=== PATIENT | female | born 1990 | race Caucasian/White ===

== ENCOUNTER 2021-03-06 17:51 | Emergency (ER) | payer BC, SELFPAY ==
[2021-03-06 18:02] VITALS: BP 132/89; PULSE 81; RESP 16; TEMP 36.3; O2SAT 100
--- NOTE | 2021-03-06 18:05 | ED.EAR ---
HPI - Ear Problem General Chief complaint: Ear Stated complaint: ear pain Time Seen by Provider: 03/06/21 18:05 Source: patient Mode of arrival: ambulatory Limitations: no limitations History of Present Illness HPI Narrative: Mary Kate Aguayo is a 30 yo female with a PMH of depression that comes to [facility] for complaints of congestion and left ear pain. No sore throat. For couple days, jaw pain and pressure across her nose that she says is pretty painful but rates it a 5 out of 10; and sleep due to the pressure-has not taken anything however except Tylenol Related Data Home Medications Medication Instructions Recorded Confirmed levonorgestrel 20 mcg/24 hours (6 1 device INTRAUTERINE ONCE 10/12/20 03/06/21 yrs) 52 mg intrauterine device sertraline 25 mg tablet 25 mg PO DAILY 10/12/20 03/06/21 Allergies Allergy/AdvReac Type Severity Reaction Status Date / Time rofecoxib Allergy Intermediate Unknown Verified 07/01/19 19:12 naproxen Allergy Mild Rash Verified 10/12/20 15:19 Review of Systems Review of Systems: Narrative: CONSTITUTIONAL: Denies fever, chills, sweats. EYES: Denies visual changes, redness, discharge. ENT: Has rhinorrhea, has congestion, sore throat, left otalgia. CARDIOVASCULAR: Denies chest pain, palpitations, edema. RESPIRATORY: Denies dyspnea, wheezing, cough GASTROINTESTINAL: Denies abdominal pain, nausea, vomiting, diarrhea. GENITOURINARY: Denies dysuria, hematuria, abnormal discharge SKIN: Denies rash or itching. NEUROLOGIC: Denies numbness, or focal weakness. PSYCHIATRIC: Denies anxiety or depression. [facility] Past Medical History Medical History Anxiety Depression Family History Family History Father Heart disease Social History Social History Smoking status: Never smoker Alcohol intake: never Substance use: never Gender identity (if verbalized by the patient): Female Comments At time of signature, I agree with nursing past medical, surgical, social and family history. There is no relevant family history pertinent to the presenting complaint. Exam Narrative: Exam Narrative: GENERAL: This is a well-nourished, well-developed patient, in mild distress. HEAD: normocephalic, atraumatic. EYES: Sclera clear/white. Vision is grossly intact. EARS: External ears normal, auditory canals clear on right with some fluid behind TM and with erythema and fluid behind TM on left, has mild tenderness along eustachian tube of left side. Hearing grossly intact. NOSE: External nose normal with nasal discharge, nares without redness, has rhinorrhea. THROAT: Mucous membranes moist, posterior pharynx erythema with clear postnasal drainage NECK: Neck supple, non-tender CARDIOVASCULAR: Regular rate and rhythm without murmurs, gallops, or rubs. RESPIRATORY: Clear to auscultation. Breath sounds equal bilaterally. No wheezes, rales, or rhonchi. GASTROINTESTINAL: Abdomen soft, SKIN: warm, intact with no suspicious lesions or rash, good texture and turgor. NEURO: awake, alert, and oriented to person, place and time. There were no obvious focal neurologic abnormalities. Steady gait EXTREMITIES: Normal range of motion. BACK: Nontender without deformity Course Course Emergency Course: Patient comes to [facility] with complaints of cold symptoms that started a week ago but her left ear started hurting yesterday and she was unable to sleep she feels a lot of pressure and the frontal sinuses and the left side of her jaw and her ear aches Started on polymyxin eardrops Prednisone 40 mg a day x5 days Recommended that she restart her Zyrtec; may use Flonase as needed after she has completed the prednisone Vital Signs Vital signs: Vital Signs Temperature 97.3 F L 03/06/21 18:02 Pulse Rate 81 03/06/21 18:02 Respiratory Rate 16 03/06/21
== END 2021-03-06 18:26 | disposition home or self-care (01) ==
PROVIDERS: Emergency Provider Nurse Practitioner; PCP Family Medicine
DX: H65.02 Acute serous otitis media, left ear (principal); R09.81 Nasal congestion; F41.9 Anxiety disorder, unspecified; F32.9 Major depressive disorder, single episode, unspecified
CPT/HCPCS: 99213; G0463

== ENCOUNTER → 2021-09-10 12:30 | Outpatient (CLI) | payer BC, SELFPAY ==
--- NOTE | ~2021-09-10 | CT_ITS ---
EXAMINATION: CT abdomen pelvis wo con DATE: 09/10/2021 13:06 INDICATION: Noninfected gastroenteritis and colitis. TECHNIQUE: Computed tomography (CT) of the abdomen and pelvis was performed without intravenous contr ast. Automated exposure control and iterative reconstruction technique were employed. The dose-length product was 318.12 mGy-cm. COMPARISON: None. FINDINGS: The visualized portions of the lung bases are clear without pneumonia or pleural effusion. The heart size is normal. No pericardial effusion. The liver, gallbladder, spleen, pancreas, adrenal glands, and kidneys are normal. There is no urolithiasis. There is an intrauterine device in expected position. There is a 2.7 cm calcified uterine fibroid. There are no dilated loops of bowel. The appe ndix is normal. There are no pathologically enlarged lymph nodes. There is no free intraperitoneal fl uid. There is mild lumbar spondylosis. IMPRESSION: 1. Uterine fibroid. Reviewed, dictated and finalized at location A. 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 Uterine fibroid.
== END ==
PROVIDERS: PCP Family Medicine; Visit Provider Family Medicine
DX: K52.9 Noninfective gastroenteritis and colitis, unspecified (principal); R10.9 Unspecified abdominal pain; D25.9 Leiomyoma of uterus, unspecified
CPT/HCPCS: 74176

== ENCOUNTER 2021-11-25 00:49 | Day surgery (SDC) | payer BC, SELFPAY ==
[2021-11-11 12:41] VITALS: BMI 22.3
--- NOTE | 2021-11-24 14:28 | P.HP_ITS ---
History of Present Illness History of Present Illness Consent: Risks, benefits, and alternatives have been discussed and questions answered. Patient agrees to proceed with procedure. Chief complaint: diarrhea Narrative: Koki Aguayo is a 31 year old female here for investigation of diarrhea which began about 4 months ago . She will have very loose stools that are watery or mucoid. After 2 weeks or so, symptoms will improve temporarily. She also has abdominal cramping when having diarrhea. There has been no fever. She has not been traveling. There is no blood in her stools. A course of antibiotics given by her specifications writer was not permanently effective. Typically she will get a cramp in the left lower quadrant particularly after meal and then have the urge to have a bowel movement. She 1st thought that perhaps her loose stools were due to the fact that she took several antibiotics last year for infections such as a sinus infection. Her weight has been stable. Review of Systems Review of Systems: All systems reviewed & are unremarkable except as noted in HPI and below PMFSH Past Medical History Medical History Anxiety Depression JRA (juvenile rheumatoid arthritis) Family History Family History Father Heart disease Social History Social History Smoking status: Never smoker Alcohol intake: never Substance use: never Living arrangements: with family Gender identity (if verbalized by the patient): Female Spiritual care concerns: No Meds Home Medications and Allergies Home Medications Medication Instructions Recorded Confirmed Type levonorgestrel 20 mcg/24 hours (7 1 device INTRAUTERINE ONCE 10/12/20 11/11/21 History yrs) 52 mg intrauterine device sertraline 25 mg tablet 25 mg PO DAILY 10/12/20 11/11/21 History cetirizine [Zyrtec] 10 mg PO DAILY 11/11/21 11/11/21 History Allergies Allergy/AdvReac Type Severity Reaction Status Date / Time rofecoxib Allergy Intermediate Unknown Verified 11/25/21 07:53 naproxen Allergy Mild Rash Verified 11/25/21 07:53 Exam Resp: Auscultation: clear to auscultation bilaterally Cardio: Rate: regular rate Rhythm: regular rhythm GI: GI Palp: Yes Soft to palpation and No Tenderness to palpation present (GI) Assessment and Plan Assessment and plan (1) Chronic diarrhea: Code(s): K52.9 - Noninfective gastroenteritis and colitis, unspecified Status: Acute Assessment and Plan: Colonoscopy with possible biopsy or polypectomy or cautery or injection of substances.
[2021-11-25 07:54] VITALS: BP 127/89; PULSE 88; RESP 18; TEMP 36.6; O2SAT 100
[2021-11-25] MEDS: LACTATED RINGERS 1,000 ML 150 ML IV CONT (08:03)
--- NOTE | 2021-11-25 08:14 | P.PNAN_ITS ---
Anes - Initial Pre Proc Eval Procedure: Operation Date: 11/25/21 09:15 Proposed Procedures p Colonoscopy - Elvin Weiss MD Date/Time: 11/25/21 08:14 Surgeon: Elvin Weiss MD Pre Op Diagnosis: diarrhea Patient Data Age: 31 Gender: F Height: 1.63 m Weight: 60.8 kg Last Vital Signs Temp 36.6 C 11/25/21 07:54 Pulse 88 11/25/21 07:54 Resp 18 11/25/21 07:54 BP 127/89 11/25/21 07:54 Pulse Ox 100 11/25/21 07:54 Allergies Allergy/AdvReac Type Severity Reaction Status Date / Time rofecoxib Allergy Intermediate Unknown Verified 11/25/21 07:53 naproxen Allergy Mild Rash Verified 11/25/21 07:53 Home Medications Medication Instructions Recorded Confirmed Type levonorgestrel 20 mcg/24 hours (7 1 device INTRAUTERINE ONCE 10/12/20 11/11/21 History yrs) 52 mg intrauterine device sertraline 25 mg tablet 25 mg PO DAILY 10/12/20 11/11/21 History cetirizine [Zyrtec] 10 mg PO DAILY 11/11/21 11/11/21 History Patient hx anesthesia problems: none Family hx anesthesia problems: none Results Review: All pre-operative results and documents have been reviewed as part of the pre-operative evaluation. [facility] Past Medical History Medical History (Updated 11/25/21 @ 08:14 by Fer Cardona MD) Anxiety Depression JRA (juvenile rheumatoid arthritis) Family History Family History Father Heart disease Social History Social History Smoking status: Never smoker Alcohol intake: never Substance use: never Living arrangements: with family Gender identity (if verbalized by the patient): Female Spiritual care concerns: No Anes - Eval Final PreProcedure Day of Procedure 11/25/21 08:14 Patient weight: normal Heart: regular rate and rhythm Lungs: clear to auscultation Airway: Mallampati scale class 1 Neurological: alert and oriented Last oral intake: >/= 8 hours ASA classification: II Emergent: no Anesthetic plan: proceed Anesthesia type and monitoring: general GIVS and standard monitoring Results Review: All pre-operative results and documents have been reviewed as part of the pre-operative evaluation. Informed Consent: The patient's anesthetic plan and its attendant risks and benefits were discussed with the patient/family/POA. Questions were solicited and answers provided to the satisfaction of the patient/family/POA.
[2021-11-25 08:53] VITALS: BP 93/57; PULSE 77; RESP 14; O2SAT 98
[2021-11-25 09:03] VITALS: BP 105/78; PULSE 80; RESP 15; O2SAT 100
[2021-11-25 09:13] VITALS: BP 122/87; PULSE 79; RESP 16; O2SAT 100
== END 2021-11-25 09:20 | disposition home or self-care (01) ==
PROVIDERS: PCP Family Medicine; Visit Provider Internal Medicine Gastroenterology
PROC: 0DJD8ZZ Inspection of Lower Intestinal Tract, Via Natural or Artificial Opening Endoscopic (ICD-10-PCS; CPT 45378; principal; 2021-11-25 09:15)
DX: K59.1 Functional diarrhea (principal); K52.89 Other specified noninfective gastroenteritis and colitis; F41.9 Anxiety disorder, unspecified; M08.00 Unspecified juvenile rheumatoid arthritis of unspecified site
CPT/HCPCS: 45380; 88305; J2704; J7120

== ENCOUNTER 2022-08-11 18:12 | Emergency (ER) | payer BC, SELFPAY ==
--- NOTE | ~2022-08-11 | XR_ITS ---
XR hand RT 2V DATE: 08/11/2022 18:36 INDICATION: Hand caught in log splitter. Pain. TECHNIQUE: 3 views COMPARISON: None FINDINGS: There is a virtually nondisplaced fracture of the tuft of the distal phalanx of the third d igit. There is a small fracture at the lateral proximal aspect of the tuft of the distal phalanx of the fif th digit. No other fracture or dislocation. No other significant change is noted. IMPRESSION: Fractures of uli of distal phalanx of third and fifth digits Reviewed, dictated and finalized at location A.
[2022-08-11] MEDS: traMADol HCL (*CRX) 50 MG TABLET PO (18:28)
[2022-08-11 18:35] VITALS: BP 134/96; PULSE 98; RESP 20; TEMP 36.7; O2SAT 98
--- NOTE | 2022-08-11 18:49 | ED.UPPEXIN ---
HPI - Extremity Injury (Upper) General Chief Complaint: Extremity Injury, Upper Stated Complaint: HAND INJURY Time Seen by Provider: 08/11/22 18:17 Source: patient Mode of arrival: ambulatory Limitations: no limitations History of Present Illness HPI narrative: this is a 32-year-old female that presents after she got her hand caught in a log splitter causing injury to her right 4th and 5th fingers distal ends patient was wearing a glove but tore through and has a small laceration and avulsion injuries to her 4th anterior and palmar surface of her finger is up-to-date with her tetanus. complaint: injury to: right Onset (ago): hour(s) Other Extremity Injury: Right: hand ( 4th and 5th fingers) Other injuries: none Handedness: right Place: home Severity: moderate Severity scale (1-10): 6 Related Data Home Medications Medication Instructions Recorded Confirmed levonorgestrel 20 mcg/24 hours (8 1 device intrauterine ONCE 10/12/20 08/11/22 yrs) 52 mg intrauterine device (Mirena) cetirizine 10 mg tablet (Zyrtec) 10 mg PO DAILY 11/11/21 08/11/22 Allergies Allergy/AdvReac Type Severity Reaction Status Date / Time rofecoxib Allergy Intermediate Unknown Verified 08/11/22 18:34 naproxen Allergy Mild Rash Verified 08/11/22 18:34 Review of Systems Review of Systems: All systems reviewed & are unremarkable except as noted in HPI and below PMFSH Past Medical History Medical History Anxiety Depression JRA (juvenile rheumatoid arthritis) Family History Family History Father Heart disease Social History Social History Smoking status: Never smoker Alcohol intake: never Substance use: never Gender identity (if verbalized by the patient): Female Spiritual care concerns: No Exam Const: General: healthy appearing HENMT: Head: normal to inspection Eyes: Conjunctivae: conjunctivae normal Pupils: Equal, round and reactive pupils present EOM: EOMs intact bilaterally Direct Ophthalmoscopy: no photophobia Neck: Neck: normal visual inspection Chest: Chest palpation & inspection: normal inspection of the chest Resp: Effort & Inspection: normal respiratory effort Auscultation: clear to auscultation bilaterally Cardio: Rate: regular rate Rhythm: regular rhythm GI: GI Palp: Yes Soft to palpation Auscultation: normal bowel sounds Urinary Catheter: Urinary Catheter: patent and draining Skin: General skin exam: normal color Rashes: no rashes Wounds: wounds noted Neuro: General: patient oriented x3, moves all extremities, no meningeal signs and no focal motor deficits Extrem: General: normal to inspection and no clubbing, cyanosis or edema Psych: Mental Status: mental status grossly normal Affect: normal affect Course Course Emergency Course: Patient received tramadol p.o., for pain patient is allergic to naproxen. X-rays performed which shows a tuft fractures of the distal ends of her right 4th and 5th fingers abrasions and small laceration Dermabond was used. Vital Signs Vital signs: Vital Signs Temperature 36.7 C 08/11/22 18:35 Pulse Rate 98 08/11/22 18:35 Respiratory Rate 20 08/11/22 18:35 Blood Pressure 134/96 H 08/11/22 18:35 Pulse Oximetry 98 08/11/22 18:35 Oxygen Delivery Room Air 08/11/22 18:35 Temperature 36.7 C 08/11/22 18:35 Pulse Rate 98 08/11/22 18:35 Respiratory Rate 20 08/11/22 18:35 Blood Pressure 134/96 H 08/11/22 18:35 Pulse Oximetry 98 08/11/22 18:35 Oxygen Delivery Room Air 08/11/22 18:35 Procedures Laceration Laceration 1: Date: 08/11/22 Time: 18:53 Description: stellate, flap and clean Depth: simple, single layer Pre-repair: minor debridement ====== Skin Level ====== Skin layer closed with: dermabond
[2022-08-11 19:06] VITALS: BP 120/88; PULSE 80; RESP 18; TEMP 36.6; O2SAT 99
== END 2022-08-11 19:09 | disposition home or self-care (01) ==
PROVIDERS: Emergency Provider Emergency Medicine
DX: S61.411A Laceration without foreign body of right hand, initial encounter (principal); S62.666A Nondisplaced fracture of distal phalanx of right little finger, initial encounter for closed fracture; W22.8XXA Striking against or struck by other objects, initial encounter
CPT/HCPCS: 12001; 73120; 99283; A9270

== ENCOUNTER 2022-12-22 16:54 | Outpatient (RCR) | payer BC, SELFPAY ==
--- NOTE | 2022-12-23 16:10 | OTOPEVAL1 ---
Assessment and note entered by Nadia Collier OT These treatments will address the objective and functional deficits as defined above. The patient will be advanced safely and appropriately in order for the patient to progress towards his/her prior level of function. Additional exercises will be introduced and as well as a comprehensive home exercise program upon discharge, if needed, ?to ensure carryover of functional gains achieved in the clinic. This treatment plan has been reviewed and agreement upon by the patient.
--- NOTE | 2022-12-23 16:12 | BUOTOPEVAL ---
Assessment and note entered by Nadia Collier, OT Evaluation Information Assessment Status Evaluation Diagnosis decreased ROM, hand weakness Onset 08/29/22 Subjective Information Patient reports that she was splittling wood and crushed her R hand, specifically middle, ring and small fingers on 08/29/22. She also mentions fractures at the distal end of middle and small phalanxs. Patient reports that she is able to bend them but is unable to straighten the ring and small fingers as well as notes sensitivity on the small finger and over the PIP joints. Patient reports that when she gets up in the mornings her R hand feels stiff . She also mentions pain and stiffness with knitting and handwriting. 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 Patient has not used any orthosis since she was initially seen at the ER. Patient has one small child and states that sometimes it is difficult to pick him up. Reported Pain Level Pain Score 2: Self Report Additional Pain Score Comments over PIP joints of small and ring fingers Assessment OT Clinical Summary Patient is a 32 year old female who presents as an outpatient following a crush injury on 08/29/22 resulting in hypersensitivity, weakness, and decreased ROM of the R middle, ring and small fingers. 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 Skilled OT services are recommended in order to facilitate ROM and strength of the R middle, finger and small fingers as well as desensitization of these digits. Fabrication of an extension orthosis may be needed to facilitate PIP extension. Plan of Care Interventions Therapeutic Exercise,Manual Therapy,Therapeutic Activities,Sensory Integrative Techn,Check Out for Orthotic/Pr,Ultrasound OT Services Indicated Yes Treatment Frequency and 2x/week for up to 12 sessions Duration These treatments will address the objective and functional deficits as defined above. The patient will be advanced safely and appropriately in order for the patient to progress towards his/her prior level of function. Additional exercises will be introduced and as well as a comprehensive home exercise program upon discharge, if needed, ?to ensure carryover of functional gains achieved in the clinic.
--- NOTE | 2023-10-05 14:23 | PCOTNOTE ---
The patient is discharged due to >30 days since last treatment.
== END 2023-01-17 23:59 | disposition home or self-care (01) ==
LOC: CHSOT 16:54
PROVIDERS: Visit Provider Plastic Surgery
DX: M25.641 Stiffness of right hand, not elsewhere classified (principal); M25.541 Pain in joints of right hand; S67.19 Crushing injury of other finger(s)
CPT/HCPCS: 97110; 97140; 97165

== ENCOUNTER 2023-11-15 14:34 | Outpatient (CLI) | payer BC, SELFPAY ==
[2023-11-15 15:44] LABS: Thyroid Stimulating Hormone Reflex 0.371 uIU/mL (0.465-4.68)
[2023-11-15 17:38] LABS: Total Triiodothyronine (T3) 1.75 NG/ML (0.97-1.69)
== END 2023-11-15 14:35 | disposition home or self-care (01) ==
LOC: ANHLAB 14:35
PROVIDERS: PCP Family Medicine; Visit Provider Nurse Practitioner Family
DX: R61 Generalized hyperhidrosis (principal)
CPT/HCPCS: 36415; 84439; 84443; 84480

== ENCOUNTER 2023-12-15 07:49 | Outpatient (CLI) | payer BC, SELFPAY ==
--- NOTE | ~2023-12-15 | MMUS_ITS ---
EXAMINATION: MM diagnostic peyman BI w liane, US breast BI complete HISTORY: Left breast lump TECHNIQUE: Full field and spot ML, MLO and CC 3-D tomosynthesis images of both breasts were performed and synthetic 2-D images were generated. CAD analysis was submitted and interpreted. High resolution complete bilateral breast ultrasound examination including all 4 quadrants and subareolar areas was performed. COMPARISON: None BREAST PARENCHYMAL COMPOSITION: The breasts are extremely dense, which lowers the sensitivity of mamm ography. FINDINGS: MAMMOGRAPHIC FINDINGS: Right breast: There is incompletely circumscribed suspected mass in the subareolar area with calcifications, suspec dalton fibroadenoma. No suspicious mass, architectural distortion, microcalcifications, skin thickening or retraction of t he right breast is noted otherwise. Several benign calcifications are noted. Left breast: There is an approximately 1.2 cm partially circumscribed mass in the lower inner quadrant of the left breast, corresponding to the area of complaint of left breast lump. No suspicious mass, architectural distortion, malignant calcification, skin thickening or retraction is noted otherwise. Several benign calcifications are noted. ULTRASOUND: Right breast: There is prominent shadowing from a sonographically demonstrated benign calcification in the upper o uter quadrant of the right breast. 10:00 6 cm from nipple: 2.7 x 4.7 x 4.8 mm cyst 11:00 4 cm from nipple: Parallel circumscribed hypoechoic 5.7 x 2.4 x 6.2 mm lesion with through randall smission, no internal vascularity, benign in appearance Subareolar area: Incompletely circumscribed irregular hypoechoic lesion is noted with prominent poste riorly shadowing calcification. This may measure up to approximately 1.7 cm maximal dimension. Left breast: 8:00 4.5 cm from nipple: Parallel circumscribed hypoechoic 13 x 10 x 15 mm mass, without internal vas cularity or posterior shadowing. 3:00 4 cm from nipple: Parallel circumscribed hypoechoic 5 x 3 x 6.5 mm lesion without internal vascu larity or posterior shadowing, benign in appearance IMPRESSION: 1. Incompletely circumscribed irregular hypoechoic up to approximately 1.7 cm lesion in right breast subareolar area; consider ultrasound-guided biopsy 2. Left 8:00 1.5 cm mass corresponding to the area of clinical complaint; consider ultrasound-guided biopsy BI-RADS category 4, suspicious findings. Dr. Manrique telephoned the report and ultrasound-guided biopsy recommendations on 12/15/2023 and 1128 hour s to the voicemail at [phone]. Reviewed, dictated and finalized at location A. 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 Incompletely circumscribed irregular hypoechoic up to approximately 1.7 cm l esion in right breast subareolar area; consider ultrasound-guided biopsy 2. Left 8:00 1.5 cm mass corresponding to the area of clinical complaint; consi martin ultrasound-guided biopsy BI-RADS category 4, suspicious findings. Dr. Manrique telephoned the report and ultrasound-guided biopsy recommendations on 12/15/2023 and 1128 hours to the voicemail at [phone]. IMPRESSION: 1. Incompletely circumscribed irregular hypoechoic up to approximately 1.7 cm l esion in right breast subareolar area; consider ultrasound-guided biopsy 2. Left 8:00 1.5 cm mass corresponding to the area of clinical complaint; consi matrin ultrasound-guided biopsy BI-RADS category 4, suspicious findings. Dr. Manrique telephoned the report and ultrasound-guided biopsy recommendations on 12/15/2023 and 1128 hours to the voicemail at [phone].
== END 2023-12-15 07:50 ==
LOC: MICIMG 07:50
PROVIDERS: PCP Family Medicine; Visit Provider Nurse Practitioner Family
DX: R92.8 Other abnormal and inconclusive findings on diagnostic imaging of breast (principal)
CPT/HCPCS: 76641; 77062; 77066; G0279

== ENCOUNTER 2023-12-28 12:01 | Outpatient (CLI) | payer BC, SELFPAY ==
--- NOTE | ~2023-12-28 | MR_ITS ---
MR breast BI wo/w con 12/28/2023 13:54 CDT INDICATION: Abnormal bilateral breast masses seen on recent diagnostic mammogram and ultrasound. TECHNIQUE: MRI of the breasts perform using standard protocol pre-and post IV contrast with the follo wing sequences: Axial T2 STIR, axial T1, axial vibrant T1 with fat suppression precontrast and multip hasic postcontrast. 11 cc of MultiHance administered intravenously. COMPARISON: Diagnostic bilateral mammogram and ultrasound dated 12/15/2023 FINDINGS: The breasts are extremely dense. There is marked background parenchymal enhancement. There is a regional area of nonmasslike enhancement in the upper outer quadrant of the right breast measuri ng 2.3 x 2.3 x 1.2 cm, middle third. There is heterogeneous clumped enhancement with persistent plate au enhancement. In the lower outer quadrant of the right breast at 8:00 posteriorly there is a mass m easuring 1.5 x 1 x 0.4 cm with rapid plateau enhancement. Margins is somewhat irregular. In the lower inner quadrant of the right breast at 6:00, middle third there is an irregular nodular mass with rap id plateau enhancement measuring 8 x 5 x 3 mm. No evidence of signal abnormalities in the axillary or internal mammary node distributions. LEFT BREAST: No signal abnormalities on precontrast sequences. There is marked background parenchyma l enhancement. In the upper inner quadrant of the left breast there is a region of nonmass-like enhan cement measuring 2.4 x 2.3 x 1.1 cm. There is rapid washout enhancement. In the upper inner quadrant of the left breast at 8:00, middle third there is an irregular shaped heterogeneously enhancing mass measuring 2.8 x 1.7 x 1.2 cm with rapid plateau enhancement. In the lower outer quadrant of the left breast there is an abnormal mass with heterogeneous irregular enhancement. This mass measures 1.4 x 1 .8 x 0.9 cm and is located approximately 5:00, middle third with irregular margins and internal septa tion. In the upper outer quadrant of the left breast at 1:00, middle third there is an irregular shap ed enhancing mass with rapid plateau enhancement measuring 1.2 x 2.3 x 0.7 cm. In the lower outer neeta drant of the left breast at 6:00, posteriorly there is an irregular shaped enhancing mass measuring 1 1 x 10 x 3 mm with rapid washout enhancement. In the lower outer quadrant at 5:00, middle third there is an irregular shaped heterogeneously enhancing mass measuring 9 x 7 x 6 mm with rapid washout enha ncement. In the lower outer quadrant of the left breast anterior to the pectoralis muscle at 5:00 pos teriorly there is a 7 x 4 x 4 mm enhancing mass with rapid washout enhancement. In the lower inner qu adrant at 6:00, middle third there is a 6 x 5 x 4 mm enhancing mass with rapid persistent enhancement . In the lower outer quadrant posteriorly at 5:00 there is a foci of rapid washout enhancement measur ing 5 x 3 x 3 mm. No evidence of signal abnormalities in the axillary or internal mammary node distri butions. IMPRESSION: 1: Multiple bilateral breast masses with abnormal enhancement. The most suspicious masses are as foll ows: In the right breast at 6:00 there is an 8 mm mass likely corresponding to the finding on the rig ht prior ultrasound at 6:00, 2 cm from the nipple with rapid plateau enhancement. In the left breast at 8:00 there is a 2.8 cm mass likely corresponding to the mass seen on ultrasound at 8:00, 4.5 cm fr om the nipple in the area of palpable concern. At 5:00, 4.7 cm from the nipple there is a 9 x 6 x 7 m m mass with rapid washout enhancement. There is no definite sonographic correlate to this mass. At 6: 00, 4.5 cm from the nipple there is a 6 x 5 x 4 mm heterogeneously enhancing mass without definite so nographic correlate. At 5:00 in the lower outer quadrant posteriorly, 6.8 cm posterior to the nipple there is a mass with rapid washout enhancement without definite sonographic correlate. Recommendation: Recommend u
[2023-12-28 14:57] LABS: Thyroid Stimulating Hormone 0.991 uIU/mL (0.465-4.680)
[2023-12-28 16:12] LABS: Free T4 Free Thyroxine 0.96 ng/mL (0.78-2.19)
[2023-12-31 06:21] LABS: Thyroglobulin 8.1 ng/mL (2.8-40.9); Thyroglobulin Antibodies <1 IU/mL (<=1); Thyroid Peroxidase Antibodies <1 IU/mL (<9)
== END 2023-12-28 12:02 | disposition home or self-care (01) ==
PROVIDERS: PCP Family Medicine; Visit Provider Surgery
DX: R92.343 Mammographic extreme density, bilateral breasts (principal); E05.90 Thyrotoxicosis, unspecified without thyrotoxic crisis or storm; N63.10 Unspecified lump in the right breast, unspecified quadrant; N63.20 Unspecified lump in the left breast, unspecified quadrant; R92.8 Other abnormal and inconclusive findings on diagnostic imaging of breast
CPT/HCPCS: 36415; 77049; 84432; 84439; 84443; 86376; 86800; A9577; C8908

== ENCOUNTER 2024-02-05 08:23 | Outpatient (CLI) | payer BC, SELFPAY ==
--- NOTE | ~2024-02-05 | MM_ITS ---
EXAMINATION: MM post biopsy invasive BI HISTORY: Post ultrasound-guided biopsy mammogram TECHNIQUE: MLO and CC views of both breasts following ultrasound-guided biopsies of right 10-11:00 an d 6:00 and left 8:00 lesions. COMPARISON: February 05, 2024 bilateral ultrasound-guided breast biopsies 12/15/2023ilateral diagnostic mammogram FINDINGS: Biopsy markers are present at the right upper outer quadrant near some calcifications in th is region and in the lower inner quadrant near midline, near some calcifications in this area. There is a biopsy marker along the posterolateral margin of a circumscribed approximately 1.5 cm mass in the lower inner quadrant of the left breast at 8:00 region. IMPRESSION: Status post left ultrasound-guided biopsy of right 10-11 o'clock, right approximately 6:00 and left 8 :00 lesions Pathology results pending. Reviewed, dictated and finalized at location A. IMPRESSION: Status post left ultrasound-guided biopsy of right 10-11 o'clock, right approxi mately 6:00 and left 8:00 lesions Pathology results pending.
--- NOTE | ~2024-02-05 | US_ITS ---
EXAMINATION: US GUIDED NEEDLE BIOPSY DATE: 02/05/2024 12:24 CDT INDICATION: 3 sonographic hypoechoic breast masses: Left breast 8:00 4 cm from nipple Right breast 6:00 2 cm from nipple Right breast 10-11:00 5 cm from nipple TECHNIQUE AND FINDINGS: The risks and potential benefits of the procedure were discussed with the patient, and written inform ed consent was obtained. Timeout procedure was performed. After sterile preparation of initially the left and subsequently the right breast, 1% lidocaine was utilized for local anesthesia. 1% lidocaine with epinephrine was administered to the deeper subcutaneous tissues. A 12-gauge spring-loaded biopsy gun needle was advanced to the edge of the left 8:00 lesion from a la teral approach utilizing sonographic guidance. A total of 4 tissue core samples was obtained through the lesion. An Inrad tissue marker clip was then placed at the biopsy site. Hemostasis was achieved . A sterile bandage was applied. A 12-gauge spring-loaded biopsy gun needle was advanced to the right 10-11 o'clock lesion from an inf erior approach utilizing sonographic guidance. A total of 3 tissue core samples was obtained through the lesion. A biopsy marker was then placed at the biopsy site. Hemostasis was achieved. A 12-gauge spring-loaded biopsy gun needle was advanced to the 6:00 lesion from a lateral approach ut ilizing sonographic guidance. A total 3 tissue core samples was obtained through the lesion. An biops y marker was placed at the biopsy site. Hemostasis was achieved. A sterile bandage was applied. The patient tolerated procedure well and there was no evidence of immediate complication. The patien t was given verbal instructions prior to departing from the department. A two view mammogram was perf ormed to document tissue marker clip placement. The tissue samples were submitted to surgical patholo gy for histologic analysis. No patient complaints; no complications were noted. IMPRESSION: Ultrasound guided biopsies of left 8:00 and right T10-11 o'clock and right 6:00 lesions with biopsy m arker placement. Please refer to pathology report for histologic analysis. Reviewed, dictated and finalized at [facility]. Reviewed, dictated and finalized at location A. IMPRESSION: Ultrasound guided biopsies of left 8:00 and right T10-11 o'clock and right 6:00 lesions with biopsy marker placement. Please refer to pathology report for histologic analysis. IMPRESSION: Ultrasound guided biopsies of left 8:00 and right T10-11 o'clock and right 6:00 lesions with biopsy marker placement. Please refer to pathology report for histologic analysis. IMPRESSION: Ultrasound guided biopsies of left 8:00 and right T10-11 o'clock and right 6:00 lesions with biopsy marker placement. Please refer to pathology report for histologic analysis.
== END 2024-02-05 08:24 | disposition home or self-care (01) ==
LOC: ANHIMG 08:25
PROVIDERS: PCP Family Medicine; Visit Provider Surgery
DX: R92.343 Mammographic extreme density, bilateral breasts (principal); R92.8 Other abnormal and inconclusive findings on diagnostic imaging of breast
CPT/HCPCS: 19083; 19084; 76642; 88305; A4648

== ENCOUNTER 2024-04-03 00:14 | Day surgery (SDC) | payer BC, SELFPAY ==
[2024-03-29 08:54] VITALS: BMI 23.1
--- NOTE | 2024-03-29 09:03 | PC.NURSE ---
Report to the Outpatient Waiting Room, entrance under the green pavilion located off [facility], at time 07:00AM on date 04-03-24. Planned Procedure Time: 09:00AM. Time changes happen often and if your time is changed the preop area will call you the afternoon before. - You and your visitor will be asked to self-screen and do not enter if you have any COVID symptoms. - A mask is optional within the hospital at this time. Patients may have clear liquids (water, carbonated beverages, clear teas, apple juice) until 3 hours prior to surgery (06:00AM) with a maximum of 20 ounces. - No food from midnight until time of surgery Take the following medications with a SIP of water the morning of surgery: SERTRALINE DO NOT STOP ANY OF YOUR OTHER PRESCRIPTION MEDICATIONS PRIOR TO SURGERY ?EXCEPT THE FOLLOWING Medications to discontinue per physician N/A Please no make-up, nail cameroonian, hairspray, perfume, deodorant, or body powder the day of surgery. No jewelry (including any body piercings) or valuables the day of surgery, leave them at home. Please take a shower or bath the night before, or the morning of, surgery with an antibacterial soap. Wear comfortable, loose fitting clothing. - Jewelry must be removed prior to entering the operating room. Rings and piercings that are not removed may be cut off. - The hospital will not accept responsibility for valuables. - Please leave all valuables, including medications, at home the day of surgery. If you are going home after surgery, a licensed pharmacy delivery driver must drive you home. - NO public transportation without another adult if you receive anesthesia. - We recommend that an adult stay with you for 24 hours following discharge. - We also recommend that you do not drive, make important decision, drink alcoholic beverages, or take any drugs that were not prescribed by your health care provider for at least 24 hours after your discharge time. Follow any additional instructions given to you from your surgeon. If you or anyone in your household have experienced Covid symptoms in the past week, please notify your surgeon or the nurse liaison at the phone number below for possible testing. Telephone instructions given to PATIENT and asked if any additional questions and then verbalized understanding. Patient advised to call surgeon office or pre surgery nurse liaison [phone] if any additional questions.
[2024-04-03] VITALS (8 sets, daily range): BP systolic 95–127; BP diastolic 64–86; PULSE 62–85; RESP 12–20; TEMP 36.4–36.7; O2SAT 100
--- NOTE | 2024-04-03 07:07 | WPDHPUPDATE1 ---
History and Physical Update Update Date/Time: 04/03/24 07:07 - Excisional biopsy of left breast mass, possible adjacent tissue transfer. History and Physical has been reviewed, including an updated exam of the patient. There are NO changes in the patient's condition. Risks, benefits, and alternatives have been discussed and questions answered. Patient agrees to proceed with procedure.
[2024-04-03] MEDS: ACETAMINOPHEN 500 MG TABLET 1000 MG PO (07:56)
[2024-04-03] MEDS: LACTATED RINGERS 1,000 ML 30 ML IV CONT ×2 (08:00→09:49)
--- NOTE | 2024-04-03 08:38 | WPDANESEPPF ---
Anes - Initial Pre Proc Eval Procedure: Operation Date: 04/03/24 09:00 Proposed Procedures p Excisional Biopsy Palpable Left Breast Mass, Possible Adjacent Tissue Transfer - Mavis Becerra MD Date/Time: 04/03/24 08:38 Surgeon: Mavis Becerra MD Pre Op Diagnosis: lump in left breast Patient Data Age: 33 Gender: F Height: 1.63 m Weight: 62 kg Last Vital Signs Temp 36.7 C 04/03/24 07:00 Pulse 85 04/03/24 07:00 Resp 16 04/03/24 07:00 BP 106/85 04/03/24 07:00 Pulse Ox 100 04/03/24 07:00 O2 Del Method Room Air 04/03/24 07:00 Allergies Allergy/AdvReac Type Severity Reaction Status Date / Time naproxen Allergy Mild Rash Verified 04/03/24 07:43 rofecoxib Allergy Mild Rash Verified 04/03/24 07:43 Home Medications Medication Instructions Recorded Confirmed Type levonorgestrel 21 mcg/24 hr (up to 1 device intrauterine ONCE 10/12/20 04/03/24 History 8 years) 52 mg intrauterine device (Mirena) sertraline 50 mg tablet 50 mg PO DAILY #90 tabs 04/18/23 04/03/24 Rx Patient hx anesthesia problems: none Family hx anesthesia problems: none Results Review: All pre-operative results and documents have been reviewed as part of the pre-operative evaluation. [facility] Past Medical History Medical History Anxiety Crushing injury of right hand Depression Hyperthyroidism JRA (juvenile rheumatoid arthritis) Family History Family History Father Heart disease Grandparent Diabetes mellitus Hypertension Social History Social History Years smoked: 3 Smoking status: Former smoker Tobacco type: cigarettes Second hand tobacco smoke exposure: No Alcohol intake: never Substance use: never Substance use type: does not use Do You Feel Safe in your Home?: Yes Lack of Transportation: No Lack of Food: Never True Current Housing: I Have Housing Concerned About Future Housing: No Difficulty Paying Gas/Electric Bills: No Difficulty Paying for Meds: No Currently Unemployed: No Education: Associate Degree Difficulty w/ Childcare or Family Care: No Living arrangements: with family Occupation/Education: occupation Gender identity (if verbalized by the patient): Female Sexual Orientation (if Verbalized by the Patient): Straight or Heterosexual Spiritual care concerns: No Anes - Eval Final PreProcedure Day of Procedure 04/03/24 08:38 Patient weight: normal Heart: regular rate and rhythm Lungs: clear to auscultation Airway: Mallampati scale class II Neurological: alert and oriented Last oral intake: >/= 8 hours ASA classification: II Emergent: no Anesthetic plan: proceed Anesthesia type and monitoring: general LMA and standard monitoring Results Review: All pre-operative results and documents have been reviewed as part of the pre-operative evaluation. Informed Consent: The patient's anesthetic plan and its attendant risks and benefits were discussed with the patient/family/POA. Questions were solicited and answers provided to the satisfaction of the patient/family/POA.
[2024-04-03] MEDS: SCOPOLAMINE 1 MG PATCH 1 PATCH TRANSDERM (09:04)
[2024-04-03] MEDS: ceFAZolin 2 GM/D5W 50 ML 2 GM/50 ML BAG IVPB (09:11)
[2024-04-03] MEDS: LIDOCAINE HCL 1% LOCAL INJ 20 ML VIAL 10 ML INFILTRATE (09:23)
[2024-04-03] MEDS: BUPIVACAINE/EPINEPHRINE 0.5% 50 ML VIAL 10 ML INFILTRATE (09:24)
--- NOTE | 2024-04-03 09:43 | P.OP_ITS ---
Procedure Note - Detailed Date of Procedure 04/03/24 Pre-op Diagnosis Left breast mass s/p core needle biopsy with discordant findings Post-op Diagnosis Same Procedure Performed Excisional biopsy of left breast mass Surgeon Mavis Becerra MD Janitorial Assistant Indira Diehl PA-C Anesthesia General Description of Procedure Patient was identified in the preoperative holding area brought to the operating room suite. She was laid supine in the OR table and sequential compression devices were applied. Anesthesia was induced without difficulty. The left chest and breast area were prepped and draped in a sterile fashion. The palpable mass which was located in the inner lower quadrant of the breast was identified through the skin and decision was made to excise this through a small inframammary incision. Dissection was carried down through the subcutaneous tissue and the mass was completely excised EN bloc and sent to pathology as a permanent specimen. The cavity was irrigated hemostasis was assured. The deep dermal layer was closed with interrupted 3-0 Vicryl followed by 4-0 Monocryl a subcuticular fashion for the skin. Dermabond was applied followed by a sterile dressing and a surgical bra. Patient was awoken from anesthesia taken to the recovery area in stable condition. All needles, instruments, and sponge counts were correct as reported by the operating room staff. Patient tolerated the procedure well with no immediate complications. Estimated Blood Loss 2 Pathology Yes Complications No immediate complications Condition Stable Disposition PACU [facility] Billing Surgery - Charge Forward: Surgery Billing (CPT 85562)
== END 2024-04-03 11:35 | disposition home or self-care (01) ==
PROVIDERS: PCP Family Medicine; Visit Provider Surgery
PROC: (CPT 19120; principal; 2024-04-03 09:00)
DX: D24.2 Benign neoplasm of left breast (principal); N60.22 Fibroadenosis of left breast; F41.9 Anxiety disorder, unspecified; F32.A Depression, unspecified; E05.90 Thyrotoxicosis, unspecified without thyrotoxic crisis or storm; M08.00 Unspecified juvenile rheumatoid arthritis of unspecified site; Z87.891 Personal history of nicotine dependence; Z82.49 Family history of ischemic heart disease and other diseases of the circulatory system
CPT/HCPCS: 19120; 88307; A9270; J0690; J1100; J2250; J2405; J2704; J3010; J7120; L8000

== ENCOUNTER 2024-10-29 08:32 | Outpatient (CLI) | payer BC, SELFPAY ==
--- NOTE | ~2024-10-29 | MMUS_ITS ---
EXAMINATION: MM diagnostic peyman BI w liane, US breast BI complete HISTORY: Recent biopsy. TECHNIQUE: Additional 3-D tomosynthesis images of the breasts were performed and synthetic 2-D images were generated. CAD analysis was submitted and interpreted. High resolution bilateral complete breas t ultrasound was performed. COMPARISON: Comparison to multiple prior studies sequentially, with oldest reviewed study dated 05/2024. BREAST PARENCHYMAL COMPOSITION: Dense: The breasts are extremely dense, which lowers the sensitivity of mammography. FINDINGS: MAMMOGRAPHIC FINDINGS: Interval removal of mass in the lower inner quadrant of the left breast since prior examination. Ther e are no new masses, calcifications or architectural distortion. ULTRASOUND: Complete US of all 4 quadrants of the breast/s and retroareolar region was reviewed. Right breast: At 10:00, 6 cm from the nipple there is an oval circumscribed hypoechoic mass measuring 6 mm with echogenic hilum, likely benign intramammary lymph node. At 11:00, 5 cm from the nipple the re is an oval hypoechoic 4 mm mass, likely a complicated cyst with parallel orientation and no corporate sales representative ior features or internal vascularity. There the nipple there is an oval anechoic structure with echog enic center, posterior acoustic enhancement and no internal vascularity, likely benign. Left breast: At 4:00, 5 cm from the nipple there is an oval hypoechoic parallel oriented circumscribe d mass measuring 9 x 5 x 3 mm, likely benign. No internal vascularity or posterior features. At 8:00, 4 cm from the nipple there is a 4 mm cyst. IMPRESSION: 1. Probable benign bilateral breast masses. 2. Recommend 6 month follow-up limited bilateral breast ultrasound BI-RADS category 3, probably benign findings. Reviewed, dictated and finalized at location A. S ADMINISTRATOR IMPRESSION: 1. Probable benign bilateral breast masses. 2. Recommend 6 month follow-up limited bilateral breast ultrasound BI-RADS category 3, probably benign findings.
== END 2024-10-29 08:33 | disposition home or self-care (01) ==
LOC: MICIMG 08:32
PROVIDERS: PCP Family Medicine; Visit Provider Surgery
DX: R92.8 Other abnormal and inconclusive findings on diagnostic imaging of breast (principal); N63.10 Unspecified lump in the right breast, unspecified quadrant; N63.20 Unspecified lump in the left breast, unspecified quadrant; R92.343 Mammographic extreme density, bilateral breasts
CPT/HCPCS: 76641; 77062; 77066; G0279

== ENCOUNTER 2025-05-23 08:53 | Outpatient (CLI) | payer BC, SELFPAY ==
--- NOTE | ~2025-05-23 | US_ITS ---
US breast BI limited 05/23/2025 09:18 Indication: Follow-up right breast masses Procedure: Limited right breast ultrasound Comparison: 10/29/2024 Findings: At 10:00, 6 cm from the nipple there is an oval heterogeneous parallel oriented 6 mm mass w ithout posterior features or internal vascularity, likely benign. At 11:00, 5 cm from the nipple ther e is an oval 4 mm hypoechoic parallel oriented mass without posterior features or internal vascularit y, stable. Near the nipple there is an oval partially cystic 6 mm mass with internal echogenic focus, possibly calcification, unchanged from prior study allowing for technique. At 4:00, 5 cm from the ni pple there is an oval parallel oriented hypoechoic 8mm mass without posterior features. There is mini mal marginal vascularity. No significant change. Impression: 1: Stable benign-appearing left breast masses. Recommendation: Six-month follow-up diagnostic bilateral mammogram and Limited left breast ultrasound . BI-RADS CATEGORY 3-PROBABLY BENIGN FINDING RECOMMENDATION: 6 month follow up recommended. Reviewed, dictated and finalized at location A. Impression: 1: Stable benign-appearing left breast masses. Recommendation: Six-month follow-up diagnostic bilateral mammogram and Limited left breast ultrasound. BI-RADS CATEGORY 3-PROBABLY BENIGN FINDING RECOMMENDATION: 6 month follow up recommended.
== END 2025-05-23 08:54 | disposition home or self-care (01) ==
LOC: MICIMG 08:54
PROVIDERS: PCP Family Medicine; Visit Provider Surgery
DX: N63.10 Unspecified lump in the right breast, unspecified quadrant (principal); N63.20 Unspecified lump in the left breast, unspecified quadrant; R92.343 Mammographic extreme density, bilateral breasts
CPT/HCPCS: 76642